=== PATIENT | male | born 1950 | race Caucasian/White ===

== ENCOUNTER 2016-10-28 20:32 | Emergency (ER) | payer OTHER ==
--- NOTE | 2016-10-28 20:43 | UCPHY ---
H & P Patient Type: New HPI/ROS: CHIEF COMPLAINT: Dog bite to left 2nd finger. HISTORY OF PRESENT ILLNESS: This is a 66-year-old male presenting after being bitten on the left 2nd finger by a large dog 5 hours ago that does not belong to him. He was trying to break up a fight between his 95# Standard Poodle and a 60# Mya Bull - his dog [place]'. FIght ensued, he went to break up the fight as they were on the ground, though did not fall on the ground with them. He is UTD. His dog is UTD for rabies - status of other dog is unknown unlikely to remain that way as it was a stranger, strange dog, at a park. The pain was initially severe and he quickly cleaned the wound with cold water at home. The pain has subsided since then and is now moderate. The pain does not radiate. He has full range of motion in his finger impeded only by soft tissue swelling. He denies numbness, paresthesia, or other complaints at this time. He other fingers are all atraumatic and he was not bitten anywhere else. He went on [facility] earlier in the evening. Was extremely busy, long way. Re-presented there at 8:30 there, shortly before closing time was sent here. They did not have Xray capability REVIEW OF SYSTEMS: Skin: No rashes or red streaks. Past Medical/Surgical History: Hypertension. Social History: Here with daughter. Physical Exam: General Appearance: Alert, no distress. Afebrile. Normal phonation. No respiratory distress. Skin: Warm and dry, no rashes. Musculoskeletal: No joint swelling. Extremities: There are 2 lacerations to the left index finger. The 1st is a palmar, 5 cm which is serpentine, curvilinear extending from the radial aspect of the middle phalanx overlying toward the ulnar aspect of the proximal phalanx all way into the palmar aspect of the MPJ. I am able to see a portion of the flexor tendon however this appears to be intact including during range of motion. Furthermore, after digital block has no give or weakness a to the sublimis or fundus tendons, against resistance On the dorsum of the left index there is a 4 cm laceration which is also curvilinear overlying the radial aspect PIP joint extending over the midportion of the middle phalanx toward the midportion of the proximal phalanx. In this wound I do see the tendon as well, the extensor tendon and it appears to be intact including range of motion as well as with functioning on extension against resistance Constitutional: Initial Vital Signs Temperature (C) 36.3 C 10/28/16 20:52 Heart Rate 64 10/28/16 20:52 Respiratory Rate 14 10/28/16 20:52 Blood Pressure 146/92 H 10/28/16 20:52 O2 Sat (%) 95 10/28/16 20:52 O2 Delivery Mode Room Air Allergies/Adverse Reactions: No Known Allergies Allergy (Unverified 10/28/16 20:52) Home Medications: Medication Instructions Recorded Amoxicillin/Clavulanate Pot 875 mg PO BID #10 tab 10/28/16 [Augmentin 875 MG TAB (*)] Lisinopril 10/28/16 Medical Decision Making - Diagnostics Imaging: Left 2nd finger x-ray. Viewed by myself in PACS system. Radiology's interpretation of the images is: 1. No fracture. 2. Radiopaque foreign bodies in the volar proximal soft tissues of the left second finger. I have reviewed these films. I cannot tell where there is radiopaque foreign bodies are from, they do not appear to have a donor site on fingers themselves. Consideration would also be part of the tooth of the dogs. Procedures: Digital block performed with fifty 50 mixture of 1% xylocaine with 0.5% Marcaine -both without epinephrine. . After adequate anesthesia the wound was explored. I did encounter at least 1 crepitus type piece of material that did not appear to be like a bone but more like a small piece of asphalt. Nonetheless this removed. After blocking and then a forceful irrigation the wound was re-examined by way of x-ray. Repeat x-rays show clearance of all 3 radiopaque foreign bodies. At approximately 11:00 p.m. I went to try to Steri-Strip the wound however there was active bleeding thus the pressure bandage placed on the wound After 20 minutes of pressure with an James wrap bandage bleeding has essentially subsided. I was able to a loosely Steri-Strip the wound and the wound was read bandage the staff with splint checked by me thereafter. Good alignment. Neurovascular status intact. He has already been started on an antibiotic here. ED Course/Re-evaluation: Left 2nd finger x-ray ordered. Follow-up x-rays show clearance of the 3 foreign radiopaque foreign bodies Differential Diagnosis: Differential diagnosis includes but is not limited to: Tendon laceration, partial tendon tear, digital laceration, rabies exposure We long conversation regarding rabies. His dog has been immunized. He truly is not certain which dog got him, but suspects it was the other, Pit Bull. He also surmises the pit bull was older, approximately 60 lb and thereby of an age where it should have been immunized having been received from a [facility]pc recently. Problem is, this occurred at some form of park rather than is local neighborhood thus not being able to have the dog officer find out who the stalk really belongs to. Vis-a-vis it will be lost follow-up. Granted, he did become in the area of the [employer] domain. I have offered him the rabies vaccination series and explain to him the indications in the setting of bite injury that cannot be verified as being rabies immunized but has decided to forego such treatment - he has been warned. Secondly, he might be a candidate for delayed primary closure. Thus we have a follow up with hand surgeon due to the large areas of laceration the depths. - Data Points Medications Given: Discontinued Medications Amoxicillin/Clavulanate Potassium (Augmentin 875mg) 875 mg PO EDNOW ONE PRN Reason: Protocol Stop: 10/28/16 21:52 Last Admin: 10/28/16 22:45 Dose: 875 mg Departure - Departure Disposition: Home, Routine, Self-Care Clinical Impression: Dog bite Qualifiers: Encounter type: initial encounter Qualifier Code: (W54.0XXA) Bitten by dog, initial encounter Finger laceration Qualifiers: Encounter type: initial encounter Qualifier Code: (S61.219A) Laceration without foreign body of unspecified finger without damage to nail, initial encounter Condition: Good Instructions: Animal Bite (ED), Finger Laceration (ED), Acute Wound Care (ED) Additional Instructions: Take 600mg Ibuprofen every 6-8 hours as needed for pain. You can alternate this with Tylenol every 4-6 hours if pain is severe. Keep wounds clean with warm, soapy water. Contact a hand surgeon through [facility] to set up a follow up appointment. Return to Urgent Care or the emergency department if you develop a fever, red streaks from the wound, severe worsening of pain, other signs of infection, or other serious worsening of condition. Referrals: [facility] [Provider Group] - As per Instructions Vince Pena MD [Medical Doctor] - As per Instructions Prescriptions: Amoxicillin/Clavulanate Pot [Augmentin 875 MG TAB (*)] 875 mg PO BID #10 tab - PQRS PQRS Measurement: Not applicable Report Scribed for: Dino Vallejo Report Scribed by: Kennedy Zuniga Date of Report: 10/28/16 Time of Report: 21:10
[2016-10-28 20:56] VITALS: BP 146/92; PULSE 64; RESP 14; TEMP 97.3; O2SAT 95
--- NOTE | 2016-10-28 21:39 | DX ---
LEFT SECOND FINGER, THREE VIEWS HISTORY: Dog bite. Pain and swelling. FINDINGS: Soft tissue swelling. Three radiopaque foreign bodies along the volar aspect of the left se cond finger proximal phalanx region in the subcutaneous area associated with the soft tissue lacerati on. However, no evidence of fracture of the left second finger. IMPRESSIONS: 1. No fracture. 2. Radiopaque foreign bodies in the volar proximal soft tissues of the left second finger.
[2016-10-28] MEDS ORDERED: AMOXICILLIN/CLAVULANATE POT 875/125 MG TAB PO ONE (21:51)
[2016-10-28] MEDS ORDERED: OXYCODONE/APAP 5/325MG PREPACK#4 BTL TAKEHOME ONE ×2 (23:45→23:51)
--- NOTE | 2016-10-29 06:44 | DX ---
Left Second Finger, Three Views 2241 hours HISTORY: Dog bite and laceration with foreign bodies post removal. COMPARISON: Same day earlier at 2101 hours. FINDINGS: Previous radiopaque foreign bodies along the volar aspect of the left second finger are no longer identified. There is soft tissue laceration. No evidence of fracture. IMPRESSION: 1. No evidence of fracture. 2. No evidence of residual radiopaque foreign bodies.
== END 2016-10-28 23:53 | disposition home or self-care (01) ==
LOC: CED 20:32
DX: S61.228A Laceration with foreign body of other finger without damage to nail, initial encounter (principal); W54.0XXA Bitten by dog, initial encounter; Y93.K1 Activity, walking an animal; Y92.89 Other specified places as the place of occurrence of the external cause; Z18.89 Other specified retained foreign body fragments
CPT/HCPCS: 73140; G0463; 64450-PO; 99203-PO